=== PATIENT | male | born 1990 | race Caucasian/White ===

== ENCOUNTER 2022-08-25 11:49 | Emergency (ER) | payer OTHER ==
[~2022-08-25] VITALS: Ht 177.8 cm; Wt 77.1 kg
[2022-08-25] MEDS ORDERED: CYCL10 PO (14:00)
== END 2022-08-25 14:08 | disposition home or self-care (01) ==
LOC: ER 11:49
DX: M54.10 Radiculopathy, site unspecified (principal); F17.200 Nicotine dependence, unspecified, uncomplicated
CPT/HCPCS: J1885